=== PATIENT | male | born 1965 | race Caucasian/White ===

== ENCOUNTER 2024-03-18 12:01 | Outpatient (CLI) | payer OTHER, SELFPAY ==
--- NOTE | 2024-03-18 10:30 | DI.RAD_ITS ---
Exam(s) XR KNEE LT 2V AP,LAT XR STANDING ALIGNMENT EXAM: XR STANDING ALIGNMENT CLINICAL HISTORY: L knee pain. TECHNIQUE: 2D digital imaging was performed. Standing AP views were performed from the pelvis throu gh the ankles. Weight-bearing AP and lateral views of the left knee COMPARISON: CR XR KNEE LT 2V AP,LAT from 03/18/2024 FINDINGS: BONES: No acute fracture is present. No bony destructive lesion is seen. Leg length discrepancy: No significant overall leg length discrepancy. JOINTS: Knees: Moderate narrowing of the medial femoral tibial joint space of the left knee. Lateral femoral tibial joint space is maintained. Chondrocalcinosis present at the medial meniscus. There is narrowing and spurring at the patellofemoral joint which is not optimally profiled. Minimal degen erative changes are noted of the right knee. The ankle joints are unremarkable. The hip joints are not included in the field of view due to the patient's height. SOFT TISSUE: Smoothly marginated bony density seen posterior to the tibia on the lateral view of the knee could represent a small loose body. IMPRESSION: Moderate to severe degenerative changes of the left knee, patellofemoral and medial femoral tibial mariela ints. No significant leg length discrepancy. DATA REPOSITORY: RADIATION DOSE DELIVERED:
== END 2024-03-18 12:02 | disposition home or self-care (01) ==
LOC: DIORS 12:01
PROVIDERS: PCP Internal Medicine; Visit Provider Student in an Organized Health Care Education/Training Program
DX: M17.12 Unilateral primary osteoarthritis, left knee
CPT/HCPCS: 73560; 77073

== ENCOUNTER 2025-03-24 04:16 | Outpatient (CLI) | payer OTHER, SELFPAY ==
[2025-03-24 12:48] LABS: Abs Immature Grans 0.02 10^3/uL (0.0-0.06); HCT 47.7 % (40.0-50.0); HGB 15.6 g/dL (13.5-17.5); Immature Grans % 0.4 %; MCH 28.5 pg (27.0-33.0); MCHC 32.7 % (32.0-36.0); MCV 87 fL (80-95); MPV 8.8 fL (8.0-11.0); Platelet Count 222 10^3/uL (130-400); RBC 5.48 10^6/uL (4.36-5.78); RDW 12.7 % (11.8-14.1); RDW-SD 40.6 fL; WBC 5.63 10^3/uL (4.4-10.8)
[2025-03-24 12:53] LABS: ALT 14 U/L (16-63); AST 19 U/L (15-37); Albumin 4.0 g/dL (3.4-5.0); Alkaline Phosphatase 88 U/L (46-116); Anion Gap 4.9 mmol/L (3-11); BUN 17 mg/dL (7-18); Bilirubin, Total 0.5 mg/dL (0.2-1.0); CO2 31.1 mmol/L (21.0-32.0); Calcium 9.2 mg/dL (8.5-10.1); Chloride 104 mmol/L (98-107); Estimated GFR 68.38 (mL/min/1.73m2); Glucose 93 mg/dL (74-106); Potassium 4.5 mmol/L (3.5-5.1); Sodium 140 mmol/L (136-145); Total Protein 7.3 g/dL (6.4-8.2)
[2025-03-24 13:21] LABS: Calculated LDL 135 mg/dL (<100); Cholesterol 206 mg/dL (<200); HDL Cholesterol 51 mg/dL (>or=40); TSH 1.33 uIU/mL (0.36-3.74); Triglyceride 104 mg/dL (<150)
== END 2025-03-24 04:17 | disposition home or self-care (01) ==
LOC: LBO 04:16 → LBN 12:31
PROVIDERS: PCP Internal Medicine; Visit Provider Student in an Organized Health Care Education/Training Program
DX: Z01.818 Encounter for other preprocedural examination (principal)
CPT/HCPCS: 80048; 80053; 80061; 85027; 84443; 85025

== ENCOUNTER 2025-04-06 07:21 | Day surgery (SDC) | payer OTHER, SELFPAY ==
[2025-04-06] VITALS (32 sets, daily range): BP systolic 103–137; BP diastolic 59–98; PULSE 49–69; RESP 8–32; TEMP 36.2–36.7; O2SAT 94–100; BMI 29.9
--- NOTE | 2025-04-06 07:19 | W.PM.DSUDISC ---
Date of service: 04/06/25 Discharge Plan Disposition Patient Disposition: Home Condition: Good Discharge Details Reason For Visit: L TKR Attending Provider: Janusz Leone Primary Care Provider: Steve Ruiz Home Meds and New Rx's Prescriptions: New celecoxib 200 mg capsule 200 mg PO BID Qty: 60 0RF aspirin 81 mg tablet,delayed release (DR/EC) 81 mg PO BID Qty: 60 0RF acetaminophen 500 mg tablet 1,000 mg PO TID Qty: 90 3RF pantoprazole 40 mg tablet,delayed release (DR/EC) 40 mg PO DAILY Qty: 14 0RF dexamethasone 4 mg tablet 4 mg PO DAILY Qty: 2 0RF docusate sodium 100 mg capsule 100 mg PO BID PRNQty: 28 0RF gabapentin 300 mg capsule 300 mg PO QHS Qty: 14 0RF oxycodone 5 mg tablet 5 mg PO Q4H PRNQty: 18 0RF Discharge Instructions Additional Instructions: Total Knee Discharge Instructions Activity: The most important activity is to walk and to work on gentle motion (both flexion and extension). You should try to take short walks a few times a day. It is important that when resting you work on keeping the knee straight. Avoid putting a pillow behind the knee as this will encourage flexion. Work on range of motion exercises as provided by Physical Therapy. - Start outpatient physical therapy within 2 weeks. - You should wear the TONY hose on both legs for 2 weeks. You may remove these at night. You may also use any compression sock in place of the TONY hose. - Utilize [employer] to review exercises, see videos on exercises and obtain basic information pertaining to your surgery and your recovery. Dressing: Remove the Drew wrap by 2 days after your surgery and put on the TONY stocking given to you from the hospital. Keep the surgical dressing (underneath the DREW wrap) in place for at least one week. After the first week it may be removed and replaced with light gauze and tape or nothing. The wound and dressing may get wet after 3 days but avoid soaking the dressing or otherwise it will need to be changed. Many people prefer covering the dressing with cling wrap (saran wrap) to minimize it from getting soaked. If it gets wet, just pat dry. If it starts to peel off then it will need to be changed. Medications: - You should take Tylenol and anti-inflammatory Celebrex as your primary pain control medications. If the Celebrex is too expensive or not covered, please call the office for another alternative (Advil/Ibuprofen or Naproxen/Aleve) - You have been prescribed a stronger pain medication Oxycodone for breakthrough pain, take as needed as prescribed. - You have also been prescribed a stomach acid reduction agent Pantoprozole to help reduce stomach acid and reflux. - You have been prescribed Gabapentin to take at night for restlessness and nerve pain. - You will be taking Aspirin 81mg twice a day for DVT prevention unless instructed otherwise. - You have also been prescribed Decadron to take to control post-operative nausea and pain. You will start this tomorrow. - If you have constipation you should take Colace or Miralax (both [id number]). It takes most people 3-4 days to have a bowel movement. Follow-up: 2 weeks If you have any acute concerns or questions, please do not hesitate to contact the office at [phone]. You may contact Dr. Leone with any questions after hours through the hospital at [phone] or on his cell phone at [phone]. Referrals: Janusz Leone MD [ [facility] STAFF PHYSICIAN, Orthopaedic Surgical] Equipment/Supplies: Walker Activity:: Activity as Tolerated Shower/Bathe:: 72 hours Diet:: As Tolerated Discharge Orders Discharge Orders: Discharge Order (Routine); Ordered 04/06/25 Ordered By: Sidney Whitley DS: Diagnosis Discharge Diagnosis (1) Osteoarthritis of left knee: Status: Acute
[2025-04-06] MEDS: Acetaminophen 500 MG TAB 1000 MG PO (08:03)
[2025-04-06] MEDS: Celecoxib 200 MG CAP 400 MG PO (08:04)
[2025-04-06] MEDS: Gabapentin 300 MG CAP PO (08:05)
--- NOTE | 2025-04-06 08:12 | W.ANESPRE ---
General Info Date of Service Date Performed: 04/06/25 Height: 6 ft 2 in Weight: 105.8 kg Body Mass Index (BMI): 29.9 Surgical Procedure: Operation Date: 04/06/25 09:25 Proposed Procedure Side Surgeon p Knee Total Arthroplasty w/OrthAlign Left Janusz Leone MD Actual Procedure Side Surgeon p Knee Total Arthroplasty w/OrthAlign Left Janusz Leone MD Pre-Op Diagnosis Post-Op Diagnosis Osteoarthritis of left knee: Meds Allergies and Home Medications Allergies Allergy/AdvReac Type Severity Reaction Status Date / Time No Known Allergies Allergy Verified 04/06/25 07:44 Home Medication ?Medication ?Instructions ?Recorded acetaminophen 500 mg tablet 1,000 mg (2 x 500 mg) PO TID #90 04/06/25 tabs aspirin 81 mg tablet,delayed 81 mg PO BID #60 tabs 04/06/25 release celecoxib 200 mg capsule 200 mg PO BID #60 caps 04/06/25 dexamethasone 4 mg tablet 4 mg PO DAILY #2 tabs 04/06/25 docusate sodium 100 mg capsule 100 mg PO BID PRN constipation #28 04/06/25 caps gabapentin 300 mg capsule 300 mg PO QHS #14 caps 04/06/25 oxycodone 5 mg tablet 5 mg PO Q4H PRN pain #18 tabs 04/06/25 pantoprazole 40 mg tablet,delayed 40 mg PO DAILY #14 tabs 04/06/25 release Current Visit Medications: Current Medications Generic Name Dose Route Start Last Admin Trade Name Freq PRN Reason Stop Dose Admin Acetaminophen 1,000 mg 04/06/25 06:00 04/06/25 08:03 Acetaminophen 500 Mg Tab PO 04/06/25 23:59 1,000 mg PREOP FELIPE Administration Acetaminophen 1,000 mg 04/06/25 07:16 Acetaminophen 500 Mg Tab PO 05/06/25 07:15 TID PRN PRN Analgesia Celecoxib 400 mg 04/06/25 06:00 04/06/25 08:04 Celecoxib 200 Mg Cap PO 04/06/25 23:59 400 mg PREOP FELIPE Administration Docusate Sodium 100 mg 04/06/25 07:16 Docusate Sodium 100 Mg Cap PO 05/06/25 07:15 BID PRN PRN Constipation Gabapentin 300 mg 04/06/25 06:00 04/06/25 08:05 Gabapentin 300 Mg Cap PO 04/06/25 23:59 300 mg PREOP FELIPE Administration Ringer's Solution 1,000 mls @ 80 mls/hr 04/06/25 06:00 IV 04/06/25 23:59 INFUSION FELIPE Cefazolin Sodium/Dextrose 2 gm in 50 mls @ 100 mls/hr 04/06/25 06:00 Ancef Duplex IVPB 04/06/25 23:59 PREOP FELIPE Tranexamic Acid/Sodium Chloride 1,000 mg in 100 mls @ 600 mls/hr 04/06/25 06:00 IVPB 04/06/25 23:59 PREOP FELIPE IV Miscellaneous Supplies 1 each 04/06/25 06:00 Iv Access IV 04/06/25 23:59 DIRECTED FELIPE Ondansetron HCl 4 mg 04/06/25 07:16 Ondansetron 4 Mg/2 Ml Vial IVP 05/06/25 07:15 Q6H PRN PRN Nausea Oxycodone HCl 0 mg 04/06/25 07:16 Oxycodone 5 Mg Tab PO 05/06/25 07:15 Q3H PRN PRN Pain Polyethylene Glycol 17 gm 04/06/25 07:16 Polyethylene Glycol 3350 17 Gm Packet PO 05/06/25 07:15 BID PRN PRN Constipation Sodium Chloride 0 ml 04/06/25 06:00 Normal Saline Flush 10 Ml Syr IV 04/06/25 23:59 PRN PRN Sodium Chloride 0 ml 04/06/25 06:00 Normal Saline 10 Ml Vial IJ 04/06/25 23:59 DIRECTED PRN Sterile Water 0 ml 04/06/25 06:00 Water,Injection,Sterile 10 Ml Vial IJ 04/06/25 23:59 DIRECTED PRN PFSH Active Problems Active Problems: Problem Status Onset Code Osteoarthritis of left knee Acute M17.12 Surgical History Surgical History H/O medial meniscus repair of left knee History of Mohs surgery for squamous cell carcinoma of skin Tobacco Smoking/Tobacco Use Status: Never Passive smoking exposure: Yes Alcohol Alcohol Intake: current Alcohol intake frequency: holidays/special occasions only Substance Use Substance use: Never Substance use type: does not use Vital Signs and Lab Results Vital Signs Most Recent Vital Signs in EMR: Most Recent Vital Signs Temp Pulse Resp BP Pulse Ox 36.7 C 69 16 103/75 98 04/06/25 07:48 04/06/25 07:48 04/06/25 07:48 04/06/25 07:48 04/06/25 07:48 Lab Results Complete Blood Count: WBC, (4.4-10.8) 5.63 10^3/uL 03/24/25, 11:45 RBC, (4.36-5.78) 5.48 10^6/uL 03/24/25, 11:45 Hgb, (13.5-17.5) 15.6 g/dL 03/24/25, 11:45 Hct, (40.0-50.0) 47.7 % 03/24/25, 11:45 Plt Count, (130-400) 222 10^3/uL 03/24/25, 11:45 Complete Metabolic Panel: Sodium, (136-145) 140 mmol/L 03/24/25, 11:45 Potassium, (3.5-5.1) 4.5 mmol/L 03/24/25, 11:45 Chloride, (98-107) 104 mmol/L 03/24/25, 11:45 Carbon Dioxide, (21.0-32.0) 31.1 mmol/L 03/24/25, 11:45 BUN, (7-18) 17 mg/dL 03/24/25, 11:45 Creatinine, (0.70-1.30) 1.2 mg/dL 03/24/25, 11:45 Est GFR (CKD-EPI 2020), (mL/min/1.73m2) 68.38 03/24/25, 11:45 Calcium, (8.5-10.1) 9.2 mg/dL 03/24/25, 11:45 Albumin, (3.4-5.0) 4.0 g/dL 03/24/25, 11:45 Glucose, (74-106) 93 mg/dL 03/24/25, 11:45 Liver Function Panel: ALT, (16-63) 14 U/L L 03/24/25, 11:45 AST, (15-37) 19 U/L 03/24/25, 11:45 Thyroid Panel: TSH, (0.36-3.74) 1.33 uIU/mL 03/24/25, 11:45 Anesthesia Assessment and Plan Anesthesia History Personal History: No History of Anesthesia Complications Family History: No Family History of Anesthesia Complications Exercise Tolerance Exercise Tolerance: Metabolic Equivalents>4 Pertinent Negatives Pertinent Negatives: No Major Cardiovascular Symptoms or Complaints and No Major Pulmonary Symptoms or Complaints Cardiac & Pulmonary Exam Cardiac Exam: Normal S1/S2 Heart Sounds Pulmonary Exam: Clear Bilateral Breath Sounds Implantable Cardiac Device Does patient have a Pacemaker or an ICD?: No Airway Exam Known Difficult Airway: No Mallampati Class: 2 Mouth Opening: Normal (> 3cm) Thyromental Distance: Greater than 3 cm Neck Range of Motion: Full ROM Neck Circumference: Normal Teeth Condition: Normal Dentition ASA Classification ASA Score: ASA 2 Emergency Case?: No NPO Status NPO Status: NPO Clears >2 hours, Solids >8 hours Anesthesia Plan Resuscitation Status: Full Code Anesthesia Technique: Spinal Anesthesia Airway Planned: Natural Airway Monitors Used: Standard Monitors Preoperative Comments:: Patient offered adductor canal block, declined. No GERD symptoms, elects SAB with sedation, GA backup.
[2025-04-06] MEDS: Lactated Ringers 1,000 ML 80 ML IV (08:19)
[2025-04-06] MEDS: ceFAZolin 2 GM/50 ML BAG IVPB (08:43)
--- NOTE | 2025-04-06 08:59 | W.PM.OP ---
Operative Note Operative Note PRE-OP DIAGNOSIS: Left Knee Osteoarthritis POST-OP DIAGNOSIS: same PROCEDURE: Left Total Knee Replacement SURGEON: Janusz Leone [employer] SALESPERSON: Derrell Whitley ANESTHESIA TYPE: Spinal Refer to Anesthesia Record ESTIMATED BLOOD LOSS: 200 PATHOLOGY: none sent TOURNIQUET TIME: 0 COMPLICATIONS: None Patient was transported to: PACU Patient's condition: stable Implants: 1. Depuy Attune Cementless Cruciate Retaining Femoral Component, Size 8 2. Depuy Attune Cementless Fixed Bearing Tibial Component, Size 9 3. Depuy Attune 8x8mm CR/FB Poly 4. Depuy Attune Patellar Component, Size 41 mm Indications: I have seen Dereck in clinic for symptoms of LEFT knee arthritis, confirmed with radiographic findings. He has exhausted nonoperative methods and was having significant limitations in daily function and desired better function and less pain. I discussed the technical details of a knee replacement. I explained the risks of the procedure to include, but not limited to, bleeding, infection, pain, stiffness, fracture, damage to nerves and vessels, damage to muscles and tendons, loosening, need for repeat procedure, blood clot and cardiopulmonary demise. Despite these risks, NAME elected to proceed. Findings: There was significant signs of arthritis throughout the knee. Procedure Description: Dereck was greeted in the preoperative holding area where the correct side was identified and marked. The consent was reviewed with the patient and signed. The history and physical was updated. All questions were answered. Preoperative medications were administered: Acetaminophen 1000mg, Celebrex 400mg, and Gabapentin 300mg. He was taken back to the operating room. A spinal anesthestic was then administered. The patient was placed into the supine position on the operating room table. Posts were placed for positioning during the procedure. All bony prominences were well padded. Prophylactic antibiotics in the form of Cefazolin were administered. 1g of Tranxemic Acid was given intravenously within 30 minutes of incision. The left leg was then prepped with Chloraprep and draped in a standard fashion with impervious stockinette. A second prep with Chloraprep was performed prior to application of Iodine impregnated skin protection. A timeout to confirm correct identity, side and site, procedure, allergies, anesthesia, and medical concerns was performed. With the knee in some flexion, a midline incision was made overlying the knee. Full thickness skin flaps were raised once the extensor mechanism was encountered. These were raised medially and laterally. Any bleeding was controlled with electrocautery. Once the extensor mechanism was fully exposed, a medial parapatellar arthrotomy was performed in a flexed position. All bleeding from the arthrotomy and the geniculate arteries was coagulated. A medial subperiosteal peel was performed with electrocautery to the midcoronal plane. The fat pad was removed while keeping the patellar tendon protected. The anterior distal femur synovium was removed for later visualization. The ACL and PCL were resected and the anterior horn of the lateral meniscus was transected. The knee was then flexed with the patella everted. Large osteophytes from the tibia were removed. Large osteophytes from the femur were removed. Using a step drill, and based on preoperative templating, the femoral canal was entered. This was done with a step drill without any difficulty. The intramedullary distal femoral cut guide was inserted, set to a 5 degree valgus cut and 9mm cut thickness. The distal femoral cut guide was then held in position and pinned. With the soft tissues protected, the distal cut was performed. This was passed over a few times to ensure a planar cut. I then turned attention to the tibia. The extramedullary guide was placed onto the leg. The distal aspect was slid medial to adjust for position of center of ankle and stay in line with shaft of the tibia. Approximately 5 degrees of posterior slope was kept in the proximal cutting guide. The center of the guide was aligned with the PCL. The stylus was used to assess cut thickness. The medial side, most involved side, was set for a 5mm cut, corresponding to 9mm laterally. This was then held in position and pinned into place with 2 additional pins and a cross pin for stability. The medial and lateral collateral ligaments were protected and the cut was performed. With this completed, it was assessed and noted to be of appropriate dimensions. The guide was removed. A spacer block was inserted and the knee was brought into extension. The 7mm spacer block provided full extension, without hyperextension and with stability of both the medial and lateral collateral ligaments was assessed. The pins from the femur and the tibia were then removed. The distal femur was then sized. The anterior stylus was placed onto the lateral ridge of the anterior femur. This indicated a size 8 femur. The external rotation of the guide was adjusted to 0 degrees to match the epicondylar axis, perpendicular to Dayami?s line. The 4-in-1 cutting guide was the placed. The posterior medial femur cut was evaluated and appeared of good thickness. The spacer block was inserted underneath the cutting guide and stability was confirmed in 90 degrees of flexion. An keturah wing was used to confirm appropriate position of the anterior cut to avoid notching. This cutting guide was ensured to be flush on the cut surface and then pinned into place with headed pins. While protecting the soft tissues, quad tendon, and collateral ligaments, the anterior and posterior cuts were performed with a saw. The central two pins were removed and the posterior and anterior chamfers were cut next. The notch-cutting guide was placed. This was pinned to lateralize the femoral component as much as possible while keeping it flush on the cut surface. This was then pinned into position. A reciprocating saw was used to make the notch cut. A rasp smoothed the cut surfaces. The medial and lateral menisci were removed. A trial femoral component was then inserted, impacted down to the cut surfaces, and the lug holes were drilled. A provisional trial tibial component was placed and the knee was brought through range of motion. The polyethylene was trialed until there was good flexion and extension with excellent stability to the medial and lateral collaterals. The patella was tracking without thumbs. A size 8mm polyethylene component provided the best range of motion and stability with less than 2mm gapping with medial and lateral stress and full extension without significant hyperextension. The tibial cut surface was fully exposed. The tibia was then sized as a 9. The tibia had been previously marked during trialing to correspond to the center of the tibial component to help with rotation. The trial was aligned to this derrell, approximately rotated to the medial 1/3rd of the tibial tubercle. The trial was pinned into place. The tibia was prepared with a reamer and a keel punch and lug holes. The knee was then brought into extension and the patella was measured as 27mm. Using the patellar clamp and cut guide, this was resected to a flat surface with at least 13mm of thickness remaining. The size 41mm patella fit the best. This was oriented and then clamped into position. The lugs were drilled. The trial components were removed. The final components were opened on the back table. The periosteal and capsular tissues, especially posteriorly, around the knee were then systematically injected with a periarticular cocktail consisting of 246mg of Ropivacaine, 0.5mg of Epinephrine, 0.08mg of Clonidine, and 30mg of Ketorolac, diluted to 100cc. On the back table, with the implants opened. The cement was mixed. One batch of high viscosity cement was prepared with vacuum assistance. After the cement was ready a small amount was placed on the cut surface of the patella and the patellar button was clamped into position and held. The cementless knee components were placed. Starting with the tibial component, the tibia was subluxed anteriorly and the lug holes of the component were lined up. The tibia was then impacted with an impactor and mallet until the tibial component was in contact with the tibia. Then, the femoral component was inserted. The lug holes were aligned and the component was impacted into position. The final polyethylene component was inserted. The knee was irrigated with Surgiphor Betadine solution. This was allowed to sit in the knee for 3 minutes and then it was irrigated out with saline. After the cement had finally cured, approximately 15min, the clamp was removed from the patella and the knee was taken through range of motion. The patella was tracking with a no-thumbs technique. A complete synovectomy was performed around the periphery of the patella. Lateral prominence of patella was also removed with a rongeur. The capsule was then reapproximated with a No. 1 Vicryl at multiple locations. The capsule was finally closed with a No. 2 Stratafix, barbed suture. Deep tissues were then reapproximated with 0 Vicryl and 2-0 Vicryl. The skin was closed with a running 3-0 Monocryl in a subcuticular fashion. This was reinforced with skin glue. A Mepilex silver dressing was applied along with a [id number] FLAVIA wrap. A CryoCuff was applied. Dereck was transferred to the hospital bed without difficulty an suffering no apparent complication. He has a good prognosis. Physical therapy will start today and without restrictions, weight-bearing as tolerated. Aspirin 81mg BID will be used for DVT prophylaxis. Date of Procedure: 04/06/25
[2025-04-06] MEDS: TRANEXAMIC ACID/SOD. CHL. 1,000 MG/100 ML BAG 600 MG IVPB (09:03)
[2025-04-06] MEDS: fentaNYL 100 MCG/2 ML VIAL IVP ×2 (11:10→11:35)
[2025-04-06] MEDS: HYDROmorphone 2 MG/ML SYR IVP ×4 (11:12→11:45)
--- NOTE | 2025-04-06 13:01 | PT.INIE ---
PT Notes Visit Reasons: L TKR Physical Therapy Day Surgery Initial Evaluation Date:04/06/2025 Referring Doctor: MICHEAL Frost/Dr. Leone PT Orders: PT CONSULT: PT evaluation and treat status post Ortho surgery Precautions: WBAT left LE Patient Profile/Admitting Diagnosis: Patient is a 60-year-old male presenting status post elective left TKA under spinal anesthesia by Dr. Leone on 04/06/2025. Postop uncomplicated PMHX: Osteoarthritis of left knee (Acute) DEPO MEDROL 03/18/24 DUROLANE 05/06/24 Surgical History (Updated 03/16/24 @ 14:10 by Bhavesh Moura RN) H/O medial meniscus repair of left knee History of Mohs surgery for squamous cell carcinoma of skin Social History/Home Situation: Patient resides in 3 level home with his . 2 steps to enter with a rail. Flight of stairs to bedroom on second floor and another flight of stairs to his office on the third floor. Patient independent without assistive device very active recreationally skiing, hockey, biking. Patient drives patient employed full-time Equipment Owned/DME: [employer] Subjective: Patient reports he feels very groggy but wants to participate in PT at this time. Objective: [] General Observation: Male semireclined on stretcher Cryo/Cuff to left knee pillow under left knee. present Mental Status: Alert, oriented x 4, able to follow instructions, intermittently closing eyes appearing to fall asleep when at rest Pain: 5?7/10 posterior left knee with pain meds ROM: [] BUE: Within normal limits Right Lower Extremity: Within normal limits Left Lower Extremity: Hip and ankle within normal limits; knee 5-102 degrees Strength: [] BUE: 5/5 Right Lower Extremity: 5/5 Left Lower Extremity: Hip flexion: 3 -/5; hip abduction: 2+/5; hip extension: 3 -/5; knee extension: 3/5; knee flexion: 2+/5 ankle DF: 3/5 ; ankle PF: 3/5; patient able to perform fair quad set, positive lag with straight leg raise Sensation: Intact Bed Mobility/Transfers: [] Supine to sit independent Sit to stand [] SBA Stand to sit SBA Bed to chair SBA with FWW cues for quad activation left at mid stance Gait: Ambulated with FWW with standby assist 100 feet intermittent cues for quad activation left Stairs: 3 4 steps? and 2 6 steps with rails CGA with continuous cues for sequencing step to pattern Balance: [] Static Sitting: Normal Dynamic Sitting: [] Good Static Standing: Good with bilateral upper extremity support Dynamic Standing: Fair plus with bilateral upper extremity support Special Tests: [] Mobility Limitations Standardized Measure [] [facility] AM-PAC 6 clicks Basic Mobility Inpatient Short Form: [] Raw Score: 23 CMS Score: 11.20% Informed Consent/Education: Patient instructed in purpose of PT consult. Patient education provided regarding positioning to promote knee extension. Patient instructed not to place pillow under knee and to utilize pillow at ankle. 54207: Packet containing TKA exercise protocol has been given to patient. Education and training on initial set of 3 reps of exercises that can be done at home have been completed with patient and his emphasis on knee extension Patient's educated and able to provide appropriate cueing for sequencing on stairs. Assessment: Patient is a 60 yo male who presents with clinical signs and symptoms consistent with current/admitting diagnoses that have resulted to mobility limitations, gait instability, generalized weakness, and impairment of motor control as demonstrated by the following impairment level findings: 1. Decreased strength to left knee major muscle groups 2. Impaired standing balance 3. Limitation of joint range of motion in left knee 4. Pain left knee 5. impaired functional activity tolerance Impairments are contributing to the following functional limitations: 1. Inability to safely ambulate without assistive device 2. Increase completion time for mobility ADL performance 3. Increased fall risk 4. impaired ability to perform stairs safely without assistance Patient is assessed as a low complexity based on the following: History: 60-year-old male with impairment level findings, functional limitations, and past medical history as indicated above Examination: Demonstrable impairment in strength, balance, and mobility level with underlying impairments and functional limitations as documented above Presentation: stable/evolving Decision Making: low Goals: N/A. PT evaluation and 1-2 treatment sessions only for functional mobility training using recommended AD and for HEP instruction. Plan of Care/Treatment Plan: N/A. PT evaluation and 1-2 treatment session only for functional mobility training using recommended AD and for HEP instruction. DISCHARGE RECOMMENDATIONS:Home with HEP and outpatient PT as sceduled TREATMENT CODE/TIME: [id number] Thank you for the opportunity to participate in the care of this patient. Irene Joseph, PT [facility]
--- NOTE | 2025-04-06 13:24 | W.ANESPOSTOP ---
Postoperative Evaluation Date, Time and Location Date Performed: 04/06/25 Time Performed: 13:29 Patient Location: Day Surgery Unit Vital Signs Most Recent Imported Vital Signs: Most Recent Vital Signs Temp Pulse Resp BP Pulse Ox 36.2 C L 57 L 16 121/86 97 04/06/25 12:20 04/06/25 12:20 04/06/25 12:20 04/06/25 12:20 04/06/25 12:20 Pain Score Most Recent Pain Score: Most Recent Pain Score Pain Level 7 04/06/25 12:20 Assessment Mental Status: Awake (Alert & Oriented to Patient Baseline) Airway and Respiratory Function: Patent airway with normal (patient baseline) respiratory exam Cardiovascular Function: Hemodynamically Stable Hydration Status: Adequately Hydrated Nausea & Vomiting: No Nausea or Vomiting Pain: Pain is tolerable per patient (Per patient pain is mainly in the back of the knee and is tolerable.) Peripheral Nerve Block: Patient did not receive a nerve block
== END 2025-04-06 14:02 | disposition home or self-care (01) ==
PROVIDERS: PCP Internal Medicine; Visit Provider Student in an Organized Health Care Education/Training Program
PROC: (CPT 27447; principal; 2025-04-06 09:15)
DX: M17.12 Unilateral primary osteoarthritis, left knee (principal)
CPT/HCPCS: 27447; 97161; 97530; C1776; J0665; J0666; J0690; J1171; J2003; J2250; J2401; J2405; J2704; J3010

== ENCOUNTER 2025-04-21 14:46 | Outpatient (CLI) | payer OTHER, SELFPAY ==
--- NOTE | 2025-04-21 10:00 | DI.RAD_ITS ---
Exam(s) XR KNEE LT 1V XR STANDING ALIGNMENT EXAM: XR STANDING ALIGNMENT and XR knee LT 1 V CLINICAL HISTORY: 1ST POST OP S/P L TKA. TECHNIQUE: 2D digital imaging was performed. Five images were obtained. COMPARISON: CR XR STANDING ALIGNMENT from 03/18/2024 CR XR KNEE LT 2V AP,LAT from 03/18/2024 CR XR KNEE LT 1V from 04/21/2025 FINDINGS: BONES: The hips are well maintained. In the right knee, there are small osteophytes in the medial femoral tibial joint. There is chondrocalcinosis in the femoral tibial joint. In the left knee, there has been interval placement of a total knee arthroplasty. The orthopedic hardware is in good position. No lucencies are seen around the hardware. The ankles are well maintained.There is no significant leg length discrepancy. SOFT TISSUE: Normal. IMPRESSION: The left total knee arthroplasty is in good position. DATA REPOSITORY: RADIATION DOSE DELIVERED:
== END 2025-04-21 14:47 | disposition home or self-care (01) ==
LOC: DIORS 14:46
PROVIDERS: PCP Internal Medicine; Visit Provider Student in an Organized Health Care Education/Training Program
DX: Z96.652 Presence of left artificial knee joint (principal)
CPT/HCPCS: 73560; 77073